=== PATIENT | male | born 1990 | race Caucasian/White ===

== ENCOUNTER 2022-04-08 07:45 | Day surgery (SDC) | payer BC ==
[~2022-04-08 07:45] MED LIST: Albuterol 0.083% 2.5 MG/3 ML Neb Soln NEB PRN; Bupivacaine 0.5% 30 ML SDV ONE; HYDROmorphone 1 MG/ML Syringe IVPUSH PRN; Lactated Ringers 1,000 ML IV SCH; Metoclopramide 10 MG/2 ML SDV IVPUSH PRN; Morphine 2 MG/ML SYRINGE IVPUSH PRN; Naloxone 0.4 MG/ML SDV IVPUSH PRN; Octyl 2-Cyanoacrylate 1 Tube ONE; Ondansetron 4 MG/2 ML SDV IVPUSH PRN; Sodium Chloride 0.9% 10 ML Syringe FLUSH PRN; Sodium Chloride 0.9% 2.5 ML Syringe FLUSH PRN; Sodium Chloride 0.9% 20 ML SDV IV PRN; ceFAZolin 2 GM in Premix Bag 1 BAG IV ONE; fentaNYL 100 MCG/2 ML SDV IVPUSH PRN
[2022-04-08] MEDS ORDERED: fentaNYL 100 MCG/2 ML SDV ONE ×2 (09:40→10:46)
[2022-04-08] MEDS ORDERED: Propofol 200 MG/20 ML SDV ONE (09:41)
[2022-04-08] MEDS ORDERED: Midazolam 1 MG/ML 2 ML SDV ONE (09:43)
[2022-04-08] MEDS ORDERED: Dexamethasone 4 MG/ML 5 ML MDV ONE (10:03)
[2022-04-08] MEDS ORDERED: Ondansetron 4 MG/2 ML SDV ONE (11:25)
[2022-04-08] MEDS ORDERED: Ketorolac 30 MG/ML SDV ONE (11:25)
== END 2022-04-08 13:16 | disposition home or self-care (01) ==
LOC: MW.SDS 07:45
PROVIDERS: ATTEND Surgery
DX: D17.1 Benign lipomatous neoplasm of skin and subcutaneous tissue of trunk (principal); D17.23 Benign lipomatous neoplasm of skin and subcutaneous tissue of right leg; J45.909 Unspecified asthma, uncomplicated; Z91.013 Allergy to seafood; Z79.899 Other long term (current) drug therapy; Z87.891 Personal history of nicotine dependence
CPT/HCPCS: 22903; 27337; A9270; J0690; J1100; J1885; J2250; J2405; J2704; J3010; J3490; J7120; 00700

== ENCOUNTER 2022-09-23 22:54 | Emergency (ER) | payer BC ==
[2022-09-24 00:31] LABS: CARBON DIOXIDE,CO2 26.3 mmol/L (21.0-32.0); POTASSIUM,K 3.9 mmol/L (3.5-5.1)
[2022-09-24] MEDS ORDERED: ALPRAZolam 0.5 MG Tab PO ONE (01:14)
== END 2022-09-24 01:30 | disposition home or self-care (01) ==
LOC: MW.ED 22:54
DX: R00.2 Palpitations (principal); F41.9 Anxiety disorder, unspecified; R94.31 Abnormal electrocardiogram [ECG] [EKG]; I45.6 Pre-excitation syndrome
CPT/HCPCS: 36415; 80053; 83735; 84484; 85025; 93005; 99283; A9270

== ENCOUNTER 2023-02-10 13:41 | Emergency (ER) | payer BC ==
[2023-02-10] MEDS ORDERED: Ketorolac 30 MG/ML SDV IVPUSH ONE (14:07)
[2023-02-10] MEDS ORDERED: Albuterol/Ipratropium 4 GM Inhalation Spray INH STA (14:08)
[2023-02-10] MEDS ORDERED: Ipratropium 0.02% 0.5 MG/2.5 ML Neb Soln NEB ONE (14:17)
[2023-02-10] MEDS ORDERED: Albuterol 0.083% 2.5 MG/3 ML Neb Soln NEB ONE (14:17)
[2023-02-10 14:36] LABS: CARBON DIOXIDE,CO2 23.5 mmol/L (21.0-32.0)
[2023-02-10 15:28] LABS: CORONAVIRUS COVID-19 NAA NEGATIVE (NEGATIVE); INFLUENZA A NAA NEGATIVE (NEGATIVE); INFLUENZA B NAA NEGATIVE (NEGATIVE)
[2023-02-10] MEDS ORDERED: Rivaroxaban 15 MG Tab PO STA (17:29)
== END 2023-02-10 18:01 | disposition home or self-care (01) ==
LOC: MW.ED 13:41
DX: I26.99 Other pulmonary embolism without acute cor pulmonale (principal); Z91.030 Bee allergy status; Z79.01 Long term (current) use of anticoagulants; Z20.822 Contact with and (suspected) exposure to COVID-19
CPT/HCPCS: 0240U; 36415; 71045; 71275; 80053; 83735; 83880; 84484; 85025; 85379; 85610; 85730; 93005; 96374; 99285; A9270; J1885; 93010; 99284; J3490; J7620-GY

== ENCOUNTER 2023-02-11 01:45 | Emergency (ER) | payer BC ==
[2023-02-11 02:39] LABS: CARBON DIOXIDE,CO2 24.6 mmol/L (21.0-32.0)
[2023-02-11] MEDS ORDERED: Acetaminophen 500 MG Tab PO ONE (02:58)
== END 2023-02-11 04:03 | disposition home or self-care (01) ==
LOC: MW.ED 01:45
DX: I26.99 Other pulmonary embolism without acute cor pulmonale (principal); Z91.013 Allergy to seafood; Z79.01 Long term (current) use of anticoagulants
CPT/HCPCS: 36415; 80053; 84484; 85025; 93005; 99285; A9270; 93010; 99283